=== PATIENT | female | born 1995 | race Hispanic/Latino ===

== ENCOUNTER 2017-08-04 11:05 | Emergency (ER) | payer BC ==
[2017-08-04] MEDS ORDERED: Ondansetron HCl/PF 4 MG/2 ML Vial ONE (11:39)
[2017-08-04 11:56] LABS: #Basophils 0.1 thou/uL (0.0-0.2); #Eosinphils 0.1 thou/uL (0.0-0.7); #Lymphocytes 1.8 thou/uL (1.20-3.40); #Monocytes 0.6 thou/uL (0.11-0.59); #Neutrophils 12.6 thou/uL (1.40-6.50); %Basophils 0.6 % (0.0-1.0); %Eosinophils 0.4 % (0.0-10.0); %Lymphocytes 11.9 % (28.0-48.0); %Monocytes 3.8 % (0.0-4.0); %Neutrophils 83.3 % (31.0-61.0); Mean Corpuscular HGB CONC 34.4 g/dL (32.0-36.0); Mean Corpuscular Hemoglobin 32.9 pg (25.0-35.0); Mean Corpuscular Volume 95.7 fl (77.0-87.0); Mean Platelet Volume 6.4 fL (7.4-10.4); Platelet Count 569 thou/uL (130-400); RBC Distribution Width 11.1 % (11.5-14.5); Red Blood Cell (RBC) Count 4.25 mill/uL (4.00-5.20); White Blood Cell (WBC) Count 15.1 thou/uL (4.8-10.8)
[2017-08-04 12:23] LABS: ALT (SGPT) 17 U/L (8-55); AST (SGOT) 15 U/L (5-34); Albumin 4.7 g/dL (3.5-5.0); Alkaline Phosphatase 64 U/L (40-150); Anion Gap 15 mmol/L (10-20); BUN (Urea Nitrogen) 13 mg/dL (7.0-18.7); Bilirubin, Total 0.8 mg/dL (0.2-1.2); Calc. Creatinine Clearance 0 mL/min (70-130); Calcium 10.4 mg/dL (7.8-10.44); Carbon Dioxide 25 mmol/L (22-29); Chloride 102 mmol/L (98-107); Estimated GFR-MDRD Greater than 90; Globulin 3.6 g/dL (2.4-3.5); Glucose 90 mg/dL (70-105); Potassium 3.8 mmol/L (3.5-5.1); Protein, Total 8.3 g/dL (6.0-8.3); Sodium 138 mmol/L (136-145)
[2017-08-04 13:16] LABS: Bilirubin Small (Negative); Blood, Urine Negative (Negative); Clarity CLOUDY (Clear); Glucose, Urine (Dipstick) Negative (Negative); Leukocyte Trace (Negative); Nitrite Negative (Negative); Protein, Urine (Dipstick) 30 mg/dL (Neg-Trace); Specific Gravity, Urine 1.029 (1.002-1.036)
[2017-08-04 13:19] LABS: Squamous Epithelial 21-50 HPF (0-3)
[2017-08-04 13:23] LABS: Pathc Cast-AUWi Flag 20.78 (0-2.49)
[2017-08-04 13:34] LABS: Bacteria/HPF 1+ HPF (None Seen); Hyaline Casts/LPF 0-3 HYALINE CAST LPF (0-3 Hyaline); Manual Microscopic Reviewed? No Path Casts Seen; RBC/HPF None Seen HPF (0-3)
== END 2017-08-04 14:03 | disposition home or self-care (01) ==
LOC: ERS 11:05
DX: O21.1 Hyperemesis gravidarum with metabolic disturbance (principal); E86.0 Dehydration; Z3A.10 10 weeks gestation of pregnancy
CPT/HCPCS: 80053; 81003; 81015; 85025; 96361; 96374; J2405

== ENCOUNTER 2017-09-30 07:19 | Emergency (ER) | payer BC ==
[2017-09-30 08:52] LABS: Bilirubin Negative (Negative); Blood, Urine Negative (Negative); Clarity CLEAR (Clear); Glucose, Urine (Dipstick) Negative (Negative); Leukocyte Negative (Negative); Nitrite Negative (Negative); Protein, Urine (Dipstick) Negative (Neg-Trace); Specific Gravity, Urine 1.014 (1.002-1.036); Urobilinogen 0.2 mg/dL (0.2-1.0)
== END 2017-09-30 09:44 | disposition home or self-care (01) ==
LOC: ERS 07:19
DX: O99.612 Diseases of the digestive system complicating pregnancy, second trimester (principal); K59.00 Constipation, unspecified; O99.512 Diseases of the respiratory system complicating pregnancy, second trimester; J45.909 Unspecified asthma, uncomplicated; Z3A.18 18 weeks gestation of pregnancy
CPT/HCPCS: 81003; 82274; 87086

== ENCOUNTER 2017-11-02 21:04 | Day surgery (SDC) | payer BC ==
--- NOTE | 2017-11-02 21:38 | PDOC.LDHP ---
Labor and Delivery H&P Chief complaint: decreased movement, other (Nuausea but no emesis at 23 weeks) HPI: NOTE: PATIENT HAS FULL HANDWRITTEN H&P IN CHART. PLEASE SEE THAT FORM, THIS IS SECONDARY Patient of Dr Jack'damián Seen at bedside at 2120 Here for Nausea recently, no emesis, no diarhea, no fevers, and decresaed FM EGA 23 weeks HPI: 22 yo at 23 weeks by dates (HX SAB X1, no D&C) here primarily for decreased FM. [place] since arrival. No VB, no LOF. ROS: Complete ROS completed and as per HPI Current gestational age (weeks): 23 Dating criteria: last menstrual period Grav: 2 Para: 0 OB History Details: SAB x 1 Rx'd medically Current complications: none Abnormal US findings: No Current medications: pre- vitamins Previous surgical history: none Allergies/Adverse Reactions: Allergies Allergy/AdvReac Type Severity Reaction Status Date / Time No Known Allergies Allergy Verified 08/19/14 06:01 - Physical Exam Vital signs reviewed and normal: yes General: NAD Heart: RRR Lungs: CTAB Abdomen: gravid Extremeties: no edema - Assessment 23 weeks with nausea and decreased FM. No evidence of PTL or ROM. No RUQ pain on palpation. - Plan Plan: observation in L&D (I have ordered zofran ODT and a CMP. I derred cervical exam as no contractions nor vaginal complaints. Will check patient out to oncoming MD at 2200 tonight (split shift).)
[2017-11-02] MEDS ORDERED: Ondansetron ODT 4 MG TAB PO SCH (21:45)
[2017-11-02 21:56] VITALS: BMI 25.7
[2017-11-02 22:26] LABS: ALT (SGPT) 7 U/L (8-55); AST (SGOT) 11 U/L (5-34); Albumin 3.4 g/dL (3.5-5.0); Alkaline Phosphatase 68 U/L (40-150); Anion Gap 11 mmol/L (10-20); BUN (Urea Nitrogen) 7 mg/dL (7.0-18.7); Bilirubin, Total Less than 0.2 mg/dL (0.2-1.2); Calc. Creatinine Clearance 143 mL/min (70-130); Calcium 8.8 mg/dL (7.8-10.44); Carbon Dioxide 23 mmol/L (22-29); Chloride 106 mmol/L (98-107); Estimated GFR-MDRD Greater than 90; Globulin 3.1 g/dL (2.4-3.5); Glucose 102 mg/dL (70-105); Potassium 3.4 mmol/L (3.5-5.1); Protein, Total 6.5 g/dL (6.0-8.3); Sodium 137 mmol/L (136-145)
--- NOTE | 2017-11-02 22:38 | PDOC.EVN ---
Event Note - Event Note Event Note: Received report from Dr. Roca. Feels much better, tolerating liquids. No emesis. Chem 21 OK. Offered Zofran or Phenergan to go home with, pt. declines. Home with precautions.
== END 2017-11-02 22:34 | disposition home or self-care (01) ==
LOC: L&D/OP 21:04
PROVIDERS: ATTEND Obstetrics & Gynecology
DX: O36.8120 Decreased fetal movements, second trimester, not applicable or unspecified (principal); Z3A.23 23 weeks gestation of pregnancy
CPT/HCPCS: 36415; 80053; 99282

== ENCOUNTER 2017-12-25 18:12 | Day surgery (SDC) | payer BC ==
[2017-12-25 19:20] VITALS: BP 111/68; TEMP 98.1; BMI 27.0
[2017-12-25 20:03] LABS: ALT (SGPT) 11 U/L (8-55); AST (SGOT) 11 U/L (5-34); Albumin 3.3 g/dL (3.5-5.0); Alkaline Phosphatase 102 U/L (40-150); Anion Gap 13 mmol/L (10-20); BUN (Urea Nitrogen) 8 mg/dL (7.0-18.7); Bilirubin, Total 0.2 mg/dL (0.2-1.2); Calc. Creatinine Clearance 156 mL/min (70-130); Calcium 8.8 mg/dL (7.8-10.44); Carbon Dioxide 22 mmol/L (22-29); Chloride 106 mmol/L (98-107); Estimated GFR-MDRD Greater than 90; Globulin 3.1 g/dL (2.4-3.5); Glucose 100 mg/dL (70-105); Potassium 3.8 mmol/L (3.5-5.1); Protein, Total 6.4 g/dL (6.0-8.3); Sodium 137 mmol/L (136-145)
[2017-12-25 20:04] LABS: Band 32 % (5-11); Eosinophils 2 % (0-10); Hemoglobin 10.2 g/dL (12.0-16.0); Lymphocytes 33 % (21-51); MDiff Complete? YES; Mean Corpuscular Hemoglobin 34.3 pg (27.0-31.0); Mean Corpuscular Volume 98.2 fL (78.0-98.0); Mean Platelet Volume 6.4 fL (7.4-10.4); Monocytes 3 % (0-10); Neutrophil 29 % (42-75); PLT Morphology Comment Appears Adequate; Platelet Count 385 thou/uL (130-400); RBC Distribution Width 11.3 % (11.5-14.5); Reactive Lymphocytes 1 % (0-10); Red Blood Cell (RBC) Count 2.96 mill/uL (4.20-5.40); White Blood Cell (WBC) Count 13.3 thou/uL (4.8-10.8)
[2017-12-25 20:17] LABS: Bilirubin Negative (Negative); Blood, Urine Negative (Negative); Clarity CLEAR (Clear); Glucose, Urine (Dipstick) Negative (Negative); Leukocyte Negative (Negative); Nitrite Negative (Negative); Protein, Urine (Dipstick) Negative (Neg-Trace)
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
== END 2017-12-25 20:55 | disposition home or self-care (01) ==
LOC: L&D/OP 18:12
PROVIDERS: ATTEND Obstetrics & Gynecology
DX: O23.593 Infection of other part of genital tract in pregnancy, third trimester (principal); B37.3 Candidiasis of vulva and vagina; Z3A.30 30 weeks gestation of pregnancy
CPT/HCPCS: 36415; 80053; 81003; 85007; 85027; 87480; 87510; 87660; 99285

== ENCOUNTER 2018-01-26 07:20 | Day surgery (SDC) | payer BC ==
[2018-01-26 07:53] VITALS: BP 120/84; TEMP 98.9; BMI 27.4
[2018-01-26] MEDS ORDERED: Promethazine HCl 25 MG/ML VIAL IM/IV PRN (08:21)
[2018-01-26] MEDS ORDERED: Lactated Ringer's 1,000 ML IV SCH ×2 (08:30)
[2018-01-26 08:36] LABS: #Basophils 0.1 thou/uL (0.0-0.2); #Eosinphils 0.1 thou/uL (0.0-0.7); #Lymphocytes 2.4 thou/uL (1.20-3.40); #Monocytes 0.5 thou/uL (0.11-0.59); #Neutrophils 6.5 thou/uL (1.40-6.50); %Basophils 0.6 % (0.0-1.0); %Eosinophils 1.1 % (0.0-10.0); %Lymphocytes 25.3 % (21.0-51.0); %Monocytes 5.2 % (0.0-10.0); %Neutrophils 67.8 % (42.0-75.0); Hemoglobin 10.4 g/dL (12.0-16.0); Mean Corpuscular HGB CONC 33.2 g/dL (32.0-36.0); Mean Corpuscular Hemoglobin 31.4 pg (27.0-31.0); Mean Corpuscular Volume 94.5 fL (78.0-98.0); Mean Platelet Volume 6.8 fL (7.4-10.4); Platelet Count 377 thou/uL (130-400); Red Blood Cell (RBC) Count 3.31 mill/uL (4.20-5.40); White Blood Cell (WBC) Count 9.5 thou/uL (4.8-10.8)
[2018-01-26 08:56] LABS: Bilirubin Negative (Negative); Blood, Urine Negative (Negative); Clarity CLOUDY (Clear); Glucose, Urine (Dipstick) Negative (Negative); Leukocyte Negative (Negative); Nitrite Negative (Negative); Protein, Urine (Dipstick) Negative (Neg-Trace); Urobilinogen 0.2 mg/dL (0.2-1.0); pH, Urine 7.5 (5.0-9.0)
[2018-01-26 08:59] LABS: ALT (SGPT) 18 U/L (8-55); AST (SGOT) 16 U/L (5-34); Albumin 3.1 g/dL (3.5-5.0); Alkaline Phosphatase 131 U/L (40-150); Anion Gap 10 mmol/L (10-20); BUN (Urea Nitrogen) 6 mg/dL (7.0-18.7); Bilirubin, Total 0.3 mg/dL (0.2-1.2); Calc. Creatinine Clearance 147 mL/min (70-130); Calcium 9.4 mg/dL (7.8-10.44); Carbon Dioxide 22 mmol/L (22-29); Chloride 107 mmol/L (98-107); Estimated GFR-MDRD Greater than 90; Globulin 3.2 g/dL (2.4-3.5); Glucose 98 mg/dL (70-105); Potassium 3.9 mmol/L (3.5-5.1); Protein, Total 6.3 g/dL (6.0-8.3); Sodium 135 mmol/L (136-145)
--- NOTE | 2018-01-26 10:36 | PDOC.EVN ---
Event Note - Event Note Event Note: IV x2 placed by labor RNs have blown. 3rd IV placed by Dr. Liu also blown. Continues to have UCs q 2-5 mins. Labs: WBC= 9.5, H/H= 10.4/31, plts= 371. Chem; Na= 135, K= 3.9, BUN/Cr= 6/.5, T. bili, AST, ALT all WNL. UA- negative for all, SG= 1.010. Will attempt to hyrate orally and observe.
--- NOTE | 2018-01-26 11:56 | PDOC.EVN ---
Event Note - Event Note Event Note: Feeling better. No emesis. Tolerating po fluids well. SVE repated by me: unchanged. Fhts stable. Ucs decreasied on with po intake. DC home with precautions. Rx. for Phenergan 25 mg po prn #25 given.
--- NOTE | 2018-01-26 12:37 | SS ---
DATE OF SERVICE: 01/26/2018 This is the Labor and Delivery triage note. REGULAR PHYSICIAN: Clarence Jack M.D. EVALUATING PHYSICIAN: Frank Jules M.D. CHIEF COMPLAINT: Nausea, vomiting at home with lower abdominal discomfort. HISTORY OF PRESENT ILLNESS: Ms. Jo is a 21-year-old [place] AB1 with an estimated date of confinement of 03/01/2018, who presents complaining of a 24-hour history of nausea with emesi s x3 this morning. She also notes intermittent lower abdominal discomfort. PAST OBSTETRICAL HISTORY: Spontaneous miscarriage x1. PAST MEDICAL HISTORY: None. PAST SURGICAL HISTORY: None. CURRENT MEDICATIONS: vitamins and Diclegis. ALLERGIES: No known allergies. SOCIAL HISTORY: Denies tobacco or alcohol use. FAMILY HISTORY: Unremarkable. REVIEW OF SYSTEMS: Positive for nausea and vomiting. Negative for fever, chills, vaginal bleeding, or rupture of membranes. PHYSICAL EXAMINATION: VITAL SIGNS: Stable. She is afebrile in triage. GENERAL: She is well-appearing, in no acute distress. ABDOMEN: Soft, nontender, gravid with no guarding or rebound. PELVIC: Pelvic examination shows the cervix to be closed, 50% effaced mid position with the vertex p alpable. heart tones were stable. Irregular uterine contractions are seen every 3-5 minutes. ASSESSMENT: 1. A 35-week intrauterine . 2. Nausea, vomiting. 3. contractions. PLAN: The patient will be observed in triage. An IV and laboratories have been ordered. Dr. Jack has been made aware.
== END 2018-01-26 12:05 | disposition home or self-care (01) ==
LOC: L&D/OP 07:20
PROVIDERS: ATTEND Obstetrics & Gynecology
DX: O60.03 Preterm labor without delivery, third trimester (principal); O21.2 Late vomiting of pregnancy; Z3A.35 35 weeks gestation of pregnancy
CPT/HCPCS: 36415; 80053; 81003; 85025; 99282

== ENCOUNTER 2018-02-13 19:05 | Day surgery (SDC) | payer BC ==
[2018-02-13 19:46] VITALS: BMI 28.1
[2018-02-13 20:00] VITALS: BP 110/74; TEMP 97.8
[2018-02-13 20:46] LABS: Amnisure Internal Control QC ACCEPTABLE (ACCEPTABLE); Amnisure Test No Membranes Rupture (No Rupture)
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
== END 2018-02-13 21:05 | disposition home or self-care (01) ==
LOC: L&D/OP 19:05
PROVIDERS: ATTEND Obstetrics & Gynecology
DX: O99.89 Other specified diseases and conditions complicating pregnancy, childbirth and the puerperium (principal); N89.8 Other specified noninflammatory disorders of vagina; O21.0 Mild hyperemesis gravidarum; Z3A.37 37 weeks gestation of pregnancy; Z79.899 Other long term (current) drug therapy
CPT/HCPCS: 36415; 84112; 99284

== ENCOUNTER 2018-02-17 05:30 | Inpatient (IN) | payer BC ==
[2018-02-17] MEDS: Lactated Ringer's 1,000 ML IV SCH ×3 (07:20→11:15)
[2018-02-17] MEDS ORDERED: Sodium Chloride 0.9% 100 ML ONE (08:03)
[2018-02-17] MEDS ORDERED: Butorphanol Tartrate 1 MG/ML VIAL ONE (08:03)
[2018-02-17] MEDS ORDERED: Penicillin G Potassium 5 MILL.UNITS VIAL ONE (08:03)
[2018-02-17] MEDS ORDERED: Fentanyl 100 MCG/2 ML VIAL ONE (09:54)
[2018-02-17] MEDS: Fentanyl 4 mcg/Bup 0.1% Cadd 100 ML ONE ×2 (10:30→17:18)
[2018-02-17] MEDS ORDERED: Bupivacaine/Epinephrine 0.25% 30 ML VIAL ONE (11:11)
[2018-02-17] MEDS ORDERED: Penicillin G Potassium 2.5 MILL.UNITS in Sodium Chloride 0.9% 50 ML IVPB SCH (13:00)
[2018-02-17 13:07] VITALS: BMI 28.1
[2018-02-17] MEDS ORDERED: HYDROcodone/Acetaminophen 5/325 mg Tablet PO PRN ×3 (15:03→21:18)
[2018-02-17] MEDS ORDERED: NS / Oxytocin 40 units/1000ml 1,000 ML IV PRN (15:03)
[2018-02-17] MEDS ORDERED: Lidocaine 1% (PF) 30 ML VIAL SC PRN (15:03)
[2018-02-17] MEDS ORDERED: Promethazine HCl 25 MG/ML VIAL IM PRN (15:03)
[2018-02-17] MEDS ORDERED: Ibuprofen 800 MG TAB PO PRN (15:03)
[2018-02-17] MEDS ORDERED: Docusate 100 MG CAP PO PRN (15:03)
[2018-02-17] MEDS ORDERED: Butorphanol Tartrate 1 MG/ML VIAL SLOW IVP PRN (15:03)
[2018-02-17] MEDS ORDERED: Ondansetron HCl/PF 4 MG/2 ML Vial IVP PRN ×2 (15:03→21:18)
[2018-02-17] MEDS ORDERED: NS w/ Oxytocin 10 units 500 ML ONE (15:04)
[2018-02-17] MEDS ORDERED: Penicillin G Potassium 5 MILL.UNITS in Sodium Chloride 0.9% 100 ML IVPB SCH (15:15)
[2018-02-17] MEDS ORDERED: Lactated Ringer's 1,000 ML IV SCH (15:15)
[2018-02-17] MEDS ORDERED: NS w/ Oxytocin 10 units 500 ML IV SCH (15:15)
[2018-02-17 16:15] LABS: Syphilis Antibody Nonreactive (Nonreactive); Syphilis Antibody Index 0.06 S/CO (<1.00 Non-Reactive)
[2018-02-17 16:17] LABS: HBSAg Index 0.17 S/CO (0-0.99); Hep B Surf Ag Non-Reactive S/CO (NonReactive)
[2018-02-17] MEDS: Penicillin G 2.5 MILL.units 2.5 MILL.UNITS in Premix Bag 1 BAG IVPB SCH (16:42)
[2018-02-17 16:50] LABS: #Basophils 0.1 thou/uL (0.0-0.2); #Eosinphils 0.1 thou/uL (0.0-0.7); #Lymphocytes 2.9 thou/uL (1.20-3.40); #Monocytes 0.6 thou/uL (0.11-0.59); %Basophils 0.9 % (0.0-1.0); %Eosinophils 0.7 % (0.0-10.0); %Lymphocytes 24.7 % (21.0-51.0); %Monocytes 4.8 % (0.0-10.0); %Neutrophils 68.9 % (42.0-75.0); Hemoglobin 11.1 g/dL (12.0-16.0); Mean Corpuscular HGB CONC 33.4 g/dL (32.0-36.0); Mean Corpuscular Hemoglobin 31.2 pg (27.0-31.0); Mean Corpuscular Volume 93.2 fL (78.0-98.0); Mean Platelet Volume 8.5 fL (7.4-10.4); Platelet Count 378 thou/uL (130-400); RBC Distribution Width 12.5 % (11.5-14.5); Red Blood Cell (RBC) Count 3.56 mill/uL (4.20-5.40); White Blood Cell (WBC) Count 11.6 thou/uL (4.8-10.8)
[2018-02-17] MEDS ORDERED: Fentanyl 4 mcg/Bup 0.1% Cadd 100 ML ONE (17:04)
[2018-02-17] MEDS ORDERED: Lidocaine 1% (PF) 30 ML VIAL ONE (17:05)
[2018-02-17] MEDS ORDERED: Acetaminophen 325 MG TAB PO SCH (17:30)
[2018-02-17] MEDS ORDERED: diphenhydrAMINE 25 MG CAP PO PRN (21:18)
[2018-02-17] MEDS ORDERED: Adacel (T-DAP) 0.5 ML VIAL IM ONE (21:18)
[2018-02-17] MEDS ORDERED: Milk Of Magnesia 30 ML UDCUP PO PRN (21:18)
[2018-02-17] MEDS ORDERED: Preparation H Ointment 28 GM TUBE PR PRN (21:18)
[2018-02-17] MEDS ORDERED: Bisacodyl 10 MG SUPP PR PRN (21:18)
[2018-02-17] MEDS ORDERED: Benzocaine/Menthol 20-0.5% 60 ML CAN TOP PRN (21:18)
[2018-02-17] MEDS ORDERED: NS / Oxytocin 40 units/1000ml 1,000 ML IV SCH (21:30)
[2018-02-17] MEDS: Ibuprofen 800 MG TAB PO SCH (22:36)
[2018-02-17] MEDS: HYDROcodone/Acetaminophen 5/325 mg Tablet PO PRN (22:36)
[2018-02-18] MEDS: Ibuprofen 800 MG TAB PO SCH ×3 (06:17→21:11)
[2018-02-18] MEDS: Docusate Calcium (SURFAK) 240 MG CAP PO SCH ×2 (09:00→21:11)
[2018-02-18] MEDS: Ferrous Sulfate 325 MG TAB PO SCH ×2 (09:00→14:12)
[2018-02-18] MEDS: Prenatal Vitamin 1 TAB PO SCH (09:00)
[2018-02-18] MEDS: HYDROcodone/Acetaminophen 5/325 mg Tablet PO PRN (09:02)
[2018-02-18] MEDS: Penicillin G 2.5 MILL.units 2.5 MILL.UNITS in Premix Bag 1 BAG IVPB SCH (09:45)
[2018-02-19] MEDS: Ibuprofen 800 MG TAB PO SCH ×2 (05:57→13:26)
[2018-02-19] MEDS: Prenatal Vitamin 1 TAB PO SCH (08:00)
[2018-02-19] MEDS: Ferrous Sulfate 325 MG TAB PO SCH (08:01)
[2018-02-19] MEDS: Docusate Calcium (SURFAK) 240 MG CAP PO SCH (08:01)
[2018-02-19 08:14] VITALS: BP 122/87; TEMP 97.8
== END 2018-02-19 14:05 | disposition home or self-care (01) | DRG 807 ==
LOC: L&D/OP 05:30 → L&D 11:25 → 3SW 02-18 00:15
PROVIDERS: ADMIT Obstetrics & Gynecology; ATTEND Obstetrics & Gynecology
PROC: 10E0XZZ Delivery of Products of Conception, External Approach (ICD-10-PCS; principal; 2018-02-17)
DX: O69.81X0 Labor and delivery complicated by cord around neck, without compression, not applicable or unspecified (principal); Z37.0 Single live birth; Z3A.38 38 weeks gestation of pregnancy
CPT/HCPCS: 51702; 85025; 86780; 86850; 86900; 86901; 87340; 99285; J0595; J2001; J2540; J3010; J7050

== ENCOUNTER 2018-06-16 21:00 | Emergency (ER) | payer BC ==
[2018-06-16 21:22] LABS: Bilirubin Negative (Negative); Blood, Urine Negative (Negative); Clarity CLEAR (Clear); Glucose, Urine (Dipstick) Negative (Negative); Leukocyte Negative (Negative); Nitrite Negative (Negative); Pregnancy Test - Urine (BHCG) POSITIVE (Negative); Protein, Urine (Dipstick) Negative (Neg-Trace); Specific Gravity, Urine 1.027 (1.002-1.036)
[2018-06-16 21:23] LABS: Pregu Control Background? CLEAR/WHITE (CLR/WHITE); Pregu Control Bar Appear? YES (CONTROL BAR); Specific Gravity 1.027 (1.002-1.036)
[2018-06-16 21:42] LABS: #Basophils 0.1 thou/uL (0.0-0.2); #Eosinphils 0.1 thou/uL (0.0-0.7); #Lymphocytes 2.5 thou/uL (1.20-3.40); #Monocytes 0.6 thou/uL (0.11-0.59); #Neutrophils 7.5 thou/uL (1.40-6.50); %Basophils 0.6 % (0.0-1.0); %Eosinophils 0.9 % (0.0-10.0); %Lymphocytes 22.9 % (21.0-51.0); %Monocytes 5.3 % (0.0-10.0); %Neutrophils 70.3 % (42.0-75.0); Hemoglobin 13.7 g/dL (12.0-16.0); Mean Corpuscular HGB CONC 34.9 g/dL (32.0-36.0); Mean Corpuscular Hemoglobin 33.6 pg (27.0-31.0); Mean Corpuscular Volume 96.2 fL (78.0-98.0); Mean Platelet Volume 6.8 fL (7.4-10.4); Platelet Count 517 thou/uL (130-400); RBC Distribution Width 11.7 % (11.5-14.5); Red Blood Cell (RBC) Count 4.08 mill/uL (4.20-5.40); White Blood Cell (WBC) Count 10.7 thou/uL (4.8-10.8)
[2018-06-16 22:04] LABS: ALT (SGPT) 9 U/L (8-55); AST (SGOT) 12 U/L (5-34); Albumin 4.6 g/dL (3.5-5.0); Alkaline Phosphatase 69 U/L (40-150); Anion Gap 10 mmol/L (10-20); BUN (Urea Nitrogen) 10 mg/dL (7.0-18.7); Bilirubin, Total 0.5 mg/dL (0.2-1.2); Calc. Creatinine Clearance 0 mL/min (70-130); Calcium 10.1 mg/dL (7.8-10.44); Carbon Dioxide 28 mmol/L (22-29); Chloride 102 mmol/L (98-107); Estimated GFR-MDRD Greater than 90; Globulin 3.4 g/dL (2.4-3.5); Glucose 90 mg/dL (70-105); Potassium 3.6 mmol/L (3.5-5.1); Sodium 136 mmol/L (136-145)
--- NOTE | 2018-06-16 22:59 | ULT ---
ULTRASOUND PELVIC TRANSVAGINAL: 06/16/18 HISTORY: Pelvic pain. COMPARISON: None. TECHNIQUE: Real time mancuso scale, color doppler and spectral analysis of the uterus is performed transabdominal a nd transvaginal approach. The uterus is retroverted. Right ovarian corpus luteum is present. Adequate vascular flow to both ova han. There is a small gestational sac within the endometrial cavity near the fundus. Small pole and yolk sac are present. Mean gestational sac diameter is 0.79 cm. [place]-rump length measures 0.18 cm. heart tones canno t be quantified at this time. Uterus measures 8.7 x 5.3 x 6.5 cm. IMPRESSION: Findings suggestive of likely an early with gestational sac and small pole and yolk s ac seen. Close followup HCG and ultrasound recommended. POS: ALETA
== END 2018-06-16 23:15 | disposition home or self-care (01) ==
LOC: ERS 21:00
DX: O99.89 Other specified diseases and conditions complicating pregnancy, childbirth and the puerperium (principal); R10.32 Left lower quadrant pain; Z3A.01 Less than 8 weeks gestation of pregnancy
CPT/HCPCS: 36415; 76856; 80053; 81003; 81025; 84702; 85025

== ENCOUNTER 2018-07-03 17:30 | Emergency (ER) | payer BC ==
[2018-07-03 19:39] LABS: #Basophils 0.1 thou/uL (0.0-0.2); #Eosinphils 0.1 thou/uL (0.0-0.7); #Lymphocytes 2.1 thou/uL (1.20-3.40); #Monocytes 0.7 thou/uL (0.11-0.59); #Neutrophils 8.3 thou/uL (1.40-6.50); %Basophils 0.5 % (0.0-1.0); %Eosinophils 0.7 % (0.0-10.0); %Lymphocytes 18.6 % (21.0-51.0); %Monocytes 6.1 % (0.0-10.0); %Neutrophils 74.2 % (42.0-75.0); Hemoglobin 12.6 g/dL (12.0-16.0); Mean Corpuscular HGB CONC 31.5 g/dL (32.0-36.0); Mean Corpuscular Hemoglobin 30.6 pg (27.0-31.0); Mean Corpuscular Volume 97.2 fL (78.0-98.0); Mean Platelet Volume 6.9 fL (7.4-10.4); Platelet Count 507 thou/uL (130-400); RBC Distribution Width 11.2 % (11.5-14.5); White Blood Cell (WBC) Count 11.2 thou/uL (4.8-10.8)
[2018-07-03 19:48] LABS: Bilirubin Small (Negative); Blood, Urine Negative (Negative); Clarity CLEAR (Clear); Glucose, Urine (Dipstick) Negative (Negative); Leukocyte Small (Negative); Nitrite Negative (Negative); Protein, Urine (Dipstick) Trace mg/dL (Neg-Trace); pH, Urine 7.5 (5.0-9.0)
[2018-07-03 19:50] LABS: Bacteria/HPF None Seen HPF (None Seen); RBC/HPF 0-3 HPF (0-3)
[2018-07-03 19:52] LABS: Pathc Cast-AUWi Flag 3.05 (0-2.49)
[2018-07-03 20:01] LABS: Hyaline Casts/LPF 0-3 HYALINE CAST LPF (0-3 Hyaline); Other Casts/LPF None Seen LPF (0-3 Hyaline)
[2018-07-03 20:01] LABS: ALT (SGPT) 14 U/L (8-55); AST (SGOT) 16 U/L (5-34); Albumin 4.3 g/dL (3.5-5.0); Alkaline Phosphatase 69 U/L (40-150); Anion Gap 15 mmol/L (10-20); BUN (Urea Nitrogen) 8 mg/dL (7.0-18.7); Bilirubin, Total 0.3 mg/dL (0.2-1.2); Calc. Creatinine Clearance 0 mL/min (70-130); Calcium 9.7 mg/dL (7.8-10.44); Carbon Dioxide 23 mmol/L (22-29); Chloride 104 mmol/L (98-107); Estimated GFR-MDRD Greater than 90; Globulin 3.3 g/dL (2.4-3.5); Glucose 83 mg/dL (70-105); Potassium 3.7 mmol/L (3.5-5.1); Protein, Total 7.6 g/dL (6.0-8.3); Sodium 138 mmol/L (136-145)
--- NOTE | 2018-07-03 22:29 | ULT ---
PELVIC ULTRASOUND: History: Syncopal episode. Pelvic pain. FINDINGS: Real-time imaging of the pelvis shows an intrauterine gestational sac and pole. [place]-rump gwen th measurements are 1.0 cm corresponding to 7 weeks 1 day. Gestational sac measurements 2.4 cm corres ponding to 7 weeks 3 days. Small 1 cm follicle seen involving the right adnexa. The left ovary is not visualized. DOPPLER EVALUATION WITH SPECTRAL ANALYSIS: Normal flow is shown to the right ovary. The pole demonstrates a heart rate of 165 beats/minute. No subchorionic bleed. IMPRESSION: Intrauterine gestational sac and pole corresponding to 7 weeks 2 days, estimated date of delive ry 02-17-19. POS: DEBORAH
== END 2018-07-03 22:04 | disposition home or self-care (01) ==
LOC: ERS 17:30
DX: O23.41 Unspecified infection of urinary tract in pregnancy, first trimester (principal); O99.89 Other specified diseases and conditions complicating pregnancy, childbirth and the puerperium; R55 Syncope and collapse; O99.511 Diseases of the respiratory system complicating pregnancy, first trimester; J45.909 Unspecified asthma, uncomplicated; Z3A.01 Less than 8 weeks gestation of pregnancy
CPT/HCPCS: 36415; 76856; 80053; 81003; 81015; 84702; 85025; 86900; 86901; 87804; 93005; 93976

== ENCOUNTER 2018-11-26 18:06 | Day surgery (SDC) | payer BC ==
[2018-11-26 18:39] VITALS: BP 105/61; TEMP 98.6; BMI 27.2
[2018-11-26] MEDS ORDERED: Lactated Ringer's 1,000 ML IV SCH (19:00)
[2018-11-26 19:10] LABS: #Basophils 0.1 thou/uL (0.0-0.2); #Eosinphils 0.1 thou/uL (0.0-0.7); #Lymphocytes 1.9 thou/uL (1.20-3.40); #Monocytes 0.8 thou/uL (0.11-0.59); #Neutrophils 9.7 thou/uL (1.40-6.50); %Basophils 0.4 % (0.0-1.0); %Eosinophils 0.7 % (0.0-10.0); %Monocytes 6.3 % (0.0-10.0); %Neutrophils 77.6 % (42.0-75.0); Hemoglobin 9.2 g/dL (12.0-16.0); Mean Corpuscular HGB CONC 32.7 g/dL (32.0-36.0); Mean Corpuscular Hemoglobin 31.6 pg (27.0-31.0); Mean Corpuscular Volume 96.6 fL (78.0-98.0); Mean Platelet Volume 6.4 fL (7.4-10.4); Platelet Count 477 thou/uL (130-400); RBC Distribution Width 12.3 % (11.5-14.5); Red Blood Cell (RBC) Count 2.93 mill/uL (4.20-5.40); White Blood Cell (WBC) Count 12.5 thou/uL (4.8-10.8)
[2018-11-26 19:29] LABS: Anion Gap 12 mmol/L (10-20); BUN (Urea Nitrogen) 8 mg/dL (7.0-18.7); Calc. Creatinine Clearance 156 mL/min (70-130); Calcium 8.8 mg/dL (7.8-10.44); Carbon Dioxide 23 mmol/L (22-29); Chloride 104 mmol/L (98-107); Estimated GFR-MDRD Greater than 90; Glucose 85 mg/dL (70-105); Potassium 3.9 mmol/L (3.5-5.1); Sodium 135 mmol/L (136-145)
--- NOTE | 2018-11-26 19:48 | PDOC.LDHP ---
Labor and Delivery H&P Chief complaint: other (dizzy) HPI: 23 y/o at 28w5d, patient of Dr. Jack, presents with dizziness. Patient reports several episodes of feeling dizzy today. She describes it as being light headed and having hot flashes. Denies feeling of spinning. No VB, LOF, ctx, or decreased FM. ROS neg for HEENT, cv, pulm, gi, gu, neuro, psych, musculoskeletal or constitutional symptoms other than mentioned above. OB History Details: 1 prior term Past Medical History: None Current medications: other (zoloft) Previous surgical history: none Allergies/Adverse Reactions: Allergies Allergy/AdvReac Type Severity Reaction Status Date / Time No Known Allergies Allergy Verified 11/26/18 18:34 Social history: none - Physical Exam Vital signs reviewed and normal: yes General: NAD, resting Lungs: nonlabored breathing Abdomen: gravid Extremeties: no edema FHT: category 1 (130s, mod variability, + accels, no decels) [place] contractions every: none - Assessment 23 y/o at 28w5d with dizziness, now s/p iv fluids and feeling better but still a little weak. Labs confirm previously diagnosed anemia. status reassuring with reactive NST. - Plan -: D/c home with precautions. Advised to follow up with Dr. Jack this week regarding anemia.
== END 2018-11-26 20:10 | disposition home or self-care (01) ==
LOC: L&D/OP 18:06
PROVIDERS: ATTEND Obstetrics & Gynecology
DX: O99.89 Other specified diseases and conditions complicating pregnancy, childbirth and the puerperium (principal); R42 Dizziness and giddiness; O99.013 Anemia complicating pregnancy, third trimester; D64.9 Anemia, unspecified; Z3A.28 28 weeks gestation of pregnancy; Z79.899 Other long term (current) drug therapy
CPT/HCPCS: 80048; 85025; 96360; 99282

== ENCOUNTER 2019-01-15 22:00 | Day surgery (SDC) | payer BC ==
[2019-01-15 22:31] VITALS: BP 110/64; TEMP 98.3; BMI 28.5
[2019-01-15] MEDS ORDERED: hydrALAZINE 20 MG/ML VIAL SLOW IVP PRN (23:04)
--- NOTE | 2019-01-16 02:22 | SS ---
DATE OF ADMISSION: 01/15/2019 DATE OF DISCHARGE: 01/15/2019 REGULAR PHYSICIAN: Clarence Jack MD EVALUATING PHYSICIAN: Nicholas Jules MD CHIEF COMPLAINT: Contractions at home. HISTORY OF PRESENT ILLNESS: Ms. Jo is a 23-year-old G3, P1, with an estimated date of confinement of 02/13/2019, who presents complaining of contractions every 5 minutes at home with pelvic pressure. She denies bleeding or ruptured membranes. Her care has been with Dr. Jack, and she states that she was seen recently in his office and was told she was 1 cm. PAST OBSTETRICAL HISTORY: Includes one vaginal delivery at 38 weeks. PAST MEDICAL HISTORY: None. PAST SURGICAL HISTORY: None. CURRENT MEDICATIONS: 1. vitamins. 2. Diclegis. ALLERGIES: NO KNOWN ALLERGIES. SOCIAL HISTORY: Denies tobacco, alcohol, or drug use. FAMILY HISTORY: Unremarkable. REVIEW OF SYSTEMS: Denies nausea, vomiting, fever, chills, ruptured membranes, or vaginal bleeding. PHYSICAL EXAMINATION: VITAL SIGNS: In triage, her vital signs are stable and she is afebrile. GENERAL: She is pleasant and in no acute distress. ABDOMEN: Soft, nontender, and gravid. PELVIS: Exam by the labor nurse shows the cervix to be 1 cm dilated, 50% effaced with a vertex presenting. heart rate tracing is stable. Initially, two uterine contractions were seen, but then with further observation, no further contractions are noted. ASSESSMENT: 1. 35 and 6/7th-week intrauterine . 2. No evidence of active labor at this time. PLAN: The patient will be dismissed to home with labor precautions. These were reviewed with her in detail. She states she has an appointment with Dr. Jack tomorrow. Dr. Jack was notified. Job ID: [id number]
== END 2019-01-15 23:10 | disposition home or self-care (01) ==
LOC: L&D/OP 22:00
PROVIDERS: ATTEND Obstetrics & Gynecology
DX: O47.03 False labor before 37 completed weeks of gestation, third trimester (principal); Z3A.35 35 weeks gestation of pregnancy

== ENCOUNTER 2019-01-24 19:08 | Day surgery (SDC) | payer BC ==
[2019-01-24 19:46] VITALS: BP 106/75; TEMP 97.9; BMI 28.8
[2019-01-24 20:05] LABS: Amnisure Test No Membranes Rupture (No Rupture)
[2019-01-24 20:06] LABS: Amnisure Internal Control QC ACCEPTABLE (ACCEPTABLE)
[2019-01-24] MEDS ORDERED: hydrALAZINE 20 MG/ML VIAL SLOW IVP PRN (20:34)
--- NOTE | 2019-01-24 20:37 | PDOC.LDHP ---
Labor and Delivery H&P HPI: Patient of Dr Jack CC: CTX S/P intercourse within 24 hrs EGA: 37 weeks 1 day EDC: 02/13 HPI: 23 yo at 37 weeks with CTX since 1500, irregular. Unsure if LOF. Good FM, no VB. No large LOF. Review of Systems: complete ROS completed and as per HPI Current gestational age (weeks): 37 (1 day) Due date: 02/13/18 Dating criteria: last menstrual period Grav: 3 Para: 1 OB History Details: Current complications: none Abnormal US findings: No Current medications: pre-sera vitamins Previous surgical history: none Allergies/Adverse Reactions: Allergies Allergy/AdvReac Type Severity Reaction Status Date / Time No Known Allergies Allergy Verified 01/15/19 22:25 - Physical Exam Vital signs reviewed and normal: yes (114/71 110s afebrile) General: NAD Heart: RRR Lungs: CTAB Abdomen: gravid Extremeties: no edema FHT: category 1 [place] contractions every: irregular CTX - Vaginal Exam cm dilated: 1 Effacement: 50% Station: -2 - Assessment Threatened labor at early term...amnisure if neg - Plan Plan: observation in L&D (Sterile spec in process...)
--- NOTE | 2019-01-24 20:46 | PDOC.EVN ---
Event Note - Event Note Event Note: At bedside: SSE in process: SSE performed and neg for LOF with cough and valsalva. Exam grossly negative for ROM as well HX reviewed and no persistent leakage or gush noted
== END 2019-01-24 21:00 | disposition home or self-care (01) ==
LOC: L&D/OP 19:08
PROVIDERS: ATTEND Obstetrics & Gynecology
DX: O47.1 False labor at or after 37 completed weeks of gestation (principal); Z3A.37 37 weeks gestation of pregnancy; Z79.899 Other long term (current) drug therapy
CPT/HCPCS: 84112

== ENCOUNTER 2019-01-26 11:40 | Day surgery (SDC) | payer BC ==
[2019-01-26 12:18] VITALS: BMI 28.8
--- NOTE | 2019-01-26 12:25 | PDOC.LDHP ---
Labor and Delivery H&P Chief complaint: decreased movement HPI: 23 y/o at 37w3d presents with decreased movement. Pt reports she has not felt the baby move since yesterday but since arrival, baby has been moving a lot. Denies VB, LOF, ctx, or other concerns. ROS neg for HEENT, cv, pulm, gi, gu, neuro, psych, skin, musculoskeletal or constitutional symptoms other than mentioned above. OB: Dr. Jack OB History Details: 1 prior term Current complications: none Past Medical History: None Current medications: pre- vitamins Previous surgical history: none Allergies/Adverse Reactions: Allergies Allergy/AdvReac Type Severity Reaction Status Date / Time No Known Allergies Allergy Verified 01/26/19 12:13 Social history: none - Physical Exam Vital signs reviewed and normal: yes General: NAD, resting Lungs: nonlabored breathing Abdomen: gravid Extremeties: no edema FHT: category 1 (120s, mod variability, +accels, no decels) [place] contractions every: irregular - Assessment 23 y/o at 37w5d with reactive NST. - Plan -: D/c home with precautions. Advised to keep appointment scheduled for Tuesday.
== END 2019-01-26 12:36 | disposition home health service (06) ==
LOC: L&D/OP 11:40
PROVIDERS: ATTEND Obstetrics & Gynecology
DX: O36.8130 Decreased fetal movements, third trimester, not applicable or unspecified (principal); Z3A.37 37 weeks gestation of pregnancy; Z79.899 Other long term (current) drug therapy

== ENCOUNTER 2019-01-29 10:45 | Inpatient (IN) | payer BC ==
[2019-01-29] MEDS ORDERED: Misoprostol 200 MCG TAB PR PRN (10:46)
[2019-01-29] MEDS ORDERED: Lidocaine 1% (PF) 30 ML VIAL SC PRN ×2 (10:46→12:54)
[2019-01-29] MEDS ORDERED: Acetaminophen 500 MG TAB PO PRN (10:46)
[2019-01-29] MEDS ORDERED: Ondansetron PF 4 MG/2 ML Vial IVP PRN ×3 (10:46→18:23)
[2019-01-29] MEDS ORDERED: hydrALAZINE 20 MG/ML VIAL SLOW IVP PRN ×2 (10:46→18:23)
[2019-01-29] MEDS ORDERED: Butorphanol Tartrate 1 MG/ML VIAL SLOW IVP PRN (10:46)
[2019-01-29] MEDS ORDERED: Diphenoxylate HCl/Atropine Tablet PO PRN ×2 (10:46)
[2019-01-29] MEDS ORDERED: NS / Oxytocin 40 units/1000ml 1,000 ML IV PRN ×2 (10:46→12:54)
[2019-01-29] MEDS ORDERED: HYDROcodone/Acetaminophen 5/325 mg Tablet PO PRN ×2 (10:46)
[2019-01-29] MEDS ORDERED: Promethazine HCl 25 MG/ML VIAL IM PRN ×2 (10:46→14:17)
[2019-01-29] MEDS ORDERED: Docusate 100 MG CAP PO PRN (10:46)
[2019-01-29] MEDS ORDERED: Lactated Ringer's 1,000 ML IV SCH (11:00)
[2019-01-29 11:48] VITALS: BMI 28.5
[2019-01-29 12:07] LABS: Hemoglobin 9.3 g/dL (12.0-16.0); Mean Corpuscular Hemoglobin 29.7 pg (27.0-31.0); Mean Corpuscular Volume 87.4 fL (78.0-98.0); Mean Platelet Volume 7.1 fL (7.4-10.4); Platelet Count 445 thou/uL (130-400); RBC Distribution Width 13.4 % (11.5-14.5); Red Blood Cell (RBC) Count 3.12 mill/uL (4.20-5.40); White Blood Cell (WBC) Count 12.9 thou/uL (4.8-10.8)
[2019-01-29] MEDS ORDERED: NS w/ Oxytocin 10 units 500 ML ONE (12:34)
[2019-01-29 12:45] LABS: Hep B Surf Ag Non-Reactive S/CO (NonReactive)
[2019-01-29 12:46] LABS: Syphilis Antibody Nonreactive (Nonreactive); Syphilis Antibody Index 0.03 S/CO (<1.00 Non-Reactive)
[2019-01-29] MEDS ORDERED: NS w/ Oxytocin 10 units 500 ML IV SCH ×2 (13:00)
[2019-01-29] MEDS ORDERED: Fentanyl 4 mcg/Bup 0.1% Cadd 100 ML ONE (13:43)
[2019-01-29] MEDS ORDERED: Lidocaine 1% PF 5 ML VIAL ONE (13:55)
[2019-01-29] MEDS ORDERED: Lidocaine 1.5%/Epinephrine 1:200,000 5 ML AMPUL IJ ONE (13:56)
[2019-01-29] MEDS ORDERED: ePHEDrine/0.9% NaCl/PF SYRINGE 50 mg/10 ml SLOW IVP PRN (14:17)
[2019-01-29] MEDS ORDERED: Lactated Ringer's 500 ML IV PRN (14:17)
[2019-01-29] MEDS ORDERED: Acetaminophen 325 MG TAB PO PRN (14:17)
[2019-01-29] MEDS ORDERED: diphenhydrAMINE 50 MG/ML VIAL IVP PRN (14:17)
[2019-01-29] MEDS ORDERED: Naloxone HCl 0.4 mg/ml Vial IVP PRN ×2 (14:17)
[2019-01-29] MEDS ORDERED: Fentanyl 4 mcg/Bupivacaine 0.1% Cassette 100 ML EPIDURAL SCH (14:30)
[2019-01-29] MEDS ORDERED: Communication Order-Pharmacy FS SCH (14:30)
[2019-01-29] MEDS ORDERED: Milk Of Magnesia 30 ML UDCUP PO PRN (18:23)
[2019-01-29] MEDS ORDERED: Lanolin Ointment 7 GM TUBE TOP PRN (18:23)
[2019-01-29] MEDS ORDERED: Benzocaine-Menthol 82.5 ML CAN TOP PRN (18:23)
[2019-01-29] MEDS ORDERED: Preparation H Ointment 28 GM TUBE PR PRN (18:23)
[2019-01-29] MEDS ORDERED: Bisacodyl 10 MG SUPP PR PRN (18:23)
[2019-01-29] MEDS ORDERED: Misoprostol 200 MCG TAB VAG PRN (18:23)
[2019-01-29] MEDS ORDERED: Zolpidem Tartrate 5 MG TAB PO PRN (18:23)
[2019-01-29] MEDS ORDERED: NS / Oxytocin 40 units/1000ml 1,000 ML IV SCH (18:30)
[2019-01-29] MEDS: Ibuprofen 800 MG TAB PO SCH (21:21)
[2019-01-29] MEDS: Docusate Calcium (SURFAK) 240 MG CAP PO SCH (21:21)
[2019-01-30] MEDS: Ibuprofen 800 MG TAB PO SCH ×2 (04:56→13:50)
[2019-01-30] MEDS ORDERED: Acetaminophen/Codeine 30-300mg Tablet PO PRN (06:00)
[2019-01-30] MEDS: Ferrous Sulfate 325 MG TAB PO SCH ×2 (08:11→17:00)
[2019-01-30] MEDS: Docusate Calcium (SURFAK) 240 MG CAP PO SCH (08:11)
[2019-01-30] MEDS ORDERED: Prenatal Vitamin 1 TAB PO SCH (09:00)
[2019-01-30] MEDS ORDERED: Adacel (T-DAP) 0.5 ML SYRINGE IM ONE (09:00)
[2019-01-30] MEDS: Acetaminophen/Codeine 30-300mg Tablet PO PRN ×2 (11:24→17:00)
[2019-01-30 17:57] VITALS: BP 120/85; TEMP 98.1
== END 2019-01-30 19:05 | disposition home or self-care (01) | DRG 807 ==
LOC: L&D/OP 10:45 → L&D 12:51 → 3SW 20:11
PROVIDERS: ADMIT Obstetrics & Gynecology; ATTEND Obstetrics & Gynecology
PROC: 10E0XZZ Delivery of Products of Conception, External Approach (ICD-10-PCS; principal; 2019-01-29)
PROC: 0KQM0ZZ Repair Perineum Muscle, Open Approach (ICD-10-PCS; 2019-01-29)
DX: O99.344 Other mental disorders complicating childbirth (principal); Z37.0 Single live birth; F41.9 Anxiety disorder, unspecified; Z3A.37 37 weeks gestation of pregnancy; O70.1 Second degree perineal laceration during delivery
CPT/HCPCS: 36415; 51702; 85027; 86780; 86850; 86900; 86901; 87340; 99282; J2001; J2590; J3490

== ENCOUNTER 2024-02-16 08:13 | Emergency (ER) | payer BC ==
[2024-02-16] MEDS ORDERED: Iopamidol-370 76% 500 ML MDV (1 ML CHARGE) ONE (09:13)
[2024-02-16 10:16] LABS: #Basophils 0.04 10x3/uL (0.0-0.2); %Basophils 0.5 % (0.0-1.0); %Eosinophils 2.2 % (0.0-10.0); %Lymphocytes 31.5 % (21.0-51.0); %Monocytes 5.1 % (0.0-10.0); %Neutrophils 60.4 % (42.0-75.0); Hematocrit 36.6 % (36.0-47.0); Hemoglobin 12.1 g/dL (12.0-16.0); Mean Corpuscular HGB CONC 33.1 g/dL (32.0-36.0); Mean Corpuscular Hemoglobin 32.4 pg (27.0-31.0); Mean Corpuscular Volume 97.9 fL (78.0-98.0); Platelet Count 426 10x3/uL (130-400); RBC Distribution Width 12.7 % (11.5-14.5); Red Blood Cell (RBC) Count 3.74 mill/uL (4.20-5.40)
[2024-02-16 10:23] LABS: BHCG - Serum Negative (NEGATIVE); Pregs Control Background? CLEAR/WHITE (CLR/WHITE); Pregs Control Bar Appear? YES (CONTROL BAR)
[2024-02-16 10:33] LABS: ALT (SGPT) 14 U/L (8-55); AST (SGOT) 17 U/L (5-34); Albumin 3.7 g/dL (3.5-5.0); Alkaline Phosphatase 71 U/L (40-110); Anion Gap 9 mmol/L (10-20); BUN (Urea Nitrogen) 9 mg/dL (7.0-18.7); Bilirubin, Total 0.2 mg/dL (0.2-1.2); Calc. Creatinine Clearance 0 mL/min (70-130); Calcium 8.8 mg/dL (7.8-10.44); Carbon Dioxide 26 mmol/L (22-29); Chloride 109 mmol/L (98-107); Estimated GFR 126; Globulin 2.8 g/dL (2.4-3.5); Glucose 92 mg/dL (70-105); Potassium 4.1 mmol/L (3.5-5.1); Protein, Total 6.5 g/dL (6.0-8.3); Sodium 140 mmol/L (136-145)
[2024-02-16 10:34] LABS: Bacteria/HPF None Seen HPF (None Seen); Bilirubin Negative (Negative); Blood, Urine Trace (Negative); CAUTI Indications for Culture Dysuria,urgency,freq; Clarity Clear (Clear); Glucose, Urine (Dipstick) Normal (Negative); Ketone, Urine Negative (Negative); Leukocyte Negative Leu/uL (Negative); Nitrite Negative (Negative); Protein, Urine (Dipstick) Negative (Neg-Trace); RBC/HPF 0-3 HPF (0-3); Specific Gravity, Urine 1.016 (1.002-1.036); Squamous Epithelial 0-3 HPF (0-3); Urobilinogen Normal mg/dL (Less than 2); WBC/HPF 0-3 HPF (0-3)
[2024-02-16 10:39] LABS: Urine Culture Reflex No No
== END 2024-02-16 12:03 | disposition home or self-care (01) ==
LOC: ERS 08:13
DX: K62.89 Other specified diseases of anus and rectum (principal); D25.9 Leiomyoma of uterus, unspecified
CPT/HCPCS: 74177; 80053; 81001; 84703; 85025; Q9967